=== PATIENT | male | born 1945 | race Caucasian/White ===

== ENCOUNTER → 2019-02-17 | Outpatient (CLI) | payer OTHER | LOC: EMCIMAGING 13:45 | PROVIDERS: ATTEND Psychiatry & Neurology Neurology | DX: M12.88 Other specific arthropathies, not elsewhere classified, other specified site (principal); M48.061 Spinal stenosis, lumbar region without neurogenic claudication; M99.73 Connective tissue and disc stenosis of intervertebral foramina of lumbar region | CPT/HCPCS: 72131-PN ==